=== PATIENT | female | born 1955 | race Caucasian/White ===

== ENCOUNTER 2017-06-18 17:43 | Emergency (ER) | payer SELFPAY ==
[~2017-06-18] VITALS: Ht 152.4 cm; Wt 63.6 kg
[2017-06-18] MEDS ORDERED: METF850T2 PO (18:00)
[2017-06-18] MEDS ORDERED: BP PO (18:00)
[2017-06-18 18:08] LABS: GLUCOSE,POINT OF CARE 505 MG/DL (70-110)
[2017-06-18] MEDS ORDERED: IBUPROFEN 600 MG TABLET PO ONE (19:00)
[2017-06-18] MEDS ORDERED: SODIUM CHLORIDE 0.9% 1,000 ML IV ONE (19:00)
[2017-06-18] MEDS ORDERED: INSULIN REGULAR, HUMAN 100 UNITS/ML IVP ONE (19:00)
[2017-06-18 19:44] LABS: CALCIUM, TOTAL 8.9 mg/dL (8.8-10.5); CREATININE 1.09 mg/dL (0.60-1.30); POTASSIUM 3.7 mmol/L (3.5-5.1)
[2017-06-18 20:32] VITALS: BP 132/90
[2017-06-18 20:38] LABS: GLUCOSE,POINT OF CARE 223 MG/DL (70-110)
== END 2017-06-18 20:52 | disposition home or self-care (01) ==
LOC: EMS 17:49
DX: S09.90XA Unspecified injury of head, initial encounter (principal); S19.9XXA Unspecified injury of neck, initial encounter; S49.90XA Unspecified injury of shoulder and upper arm, unspecified arm, initial encounter; E11.65 Type 2 diabetes mellitus with hyperglycemia; I10 Essential (primary) hypertension; V49.50XA Passenger injured in collision with unspecified motor vehicles in traffic accident, initial encounter; Y93.89 Activity, other specified; Y92.89 Other specified places as the place of occurrence of the external cause; Y99.8 Other external cause status
CPT/HCPCS: 36415; 80048; 82948; 82962; 96361; 96374; 99284; J1815